=== PATIENT | male | born 1995 | race Caucasian/White ===

== ENCOUNTER 2018-03-22 08:50 | Emergency (ER) | payer SELFPAY ==
[~2018-03-22] VITALS: Ht 172.7 cm; Wt 70.1 kg
[2018-03-22 08:52] VITALS: BP 107/62
--- NOTE | 2018-03-22 09:05 | NUR ---
PATIENT PRESENTS TO ED WITH COMPLAINTS OF HEADACHE BEHIND THE EYES, NAUSEA, AND FEVER. PATIENT STATES ALL THESE SYMPTOMS STARTED YESTERDAY AND HAVE BEEN WORSENING SINCE. MOTHER STATES SHE GAVE HIM 2 TYLENOL LAST NIGHT. PATIENT DENIES ACTIVE VOMITING AND DIARRHEA. AAOX4; LUNGS CLEAR BL; HR EVEN AND REGULAR; PT DENIES ANY FEVER, CP, SOB, OR COUGH AT THIS TIME; PATIENT STATES PAIN OF 9/10 AT THIS TIME; VSS; PATIENT POSITIONED FOR COMFORT; HOB ELEVATED; BEDRAILS UP X1; BED DOWN. ER MD MADE AWARE OF PT STATUS.
[2018-03-22] MEDS ORDERED: NACL 0.9% 1,000 ML IV ONE (09:30)
[2018-03-22] MEDS ORDERED: KETOROLAC 30 MG/ML VIAL IVP ONE (09:30)
[2018-03-22] MEDS ORDERED: KETOROLAC 30 MG/ML VIAL ONE (09:54)
[2018-03-22 10:07] LABS: BASOPHILS % (AUTO) 0.2 % (0.0-2.0); HEMATOCRIT 46.4 % (36-52); LYMPHOCYTES # (AUTO) 0.5 K/uL (2.0-11.5); LYMPHOCYTES % (AUTO) 5.4 % (20.5-51.1); MEAN CORPUSCULAR HEMOGLOBIN 33 pg (27-31); MEAN CORPUSCULAR HGB CONC 35 g/dL (33-37); MEAN CORPUSCULAR VOLUME 94.4 fL (80-94); MONOCYTES # (AUTO) 1.1 K/uL (0.8-1.0); MONOCYTES % (AUTO) 11.5 % (1.7-9.3); NEUTROPHILS # (AUTO) 7.6 K/uL (1.8-7.7); NEUTROPHILS % (AUTO) 82.9 % (42.2-75.2); PLATELET COUNT (AUTO) 162 K/uL (140-450); RED BLOOD CELL COUNT(AUTO) 4.92 MIL/uL (4.20-6.10); RED CELL DISTRIBUTION WIDTH 12.9 % (11.6-13.7); WHITE BLOOD COUNT (AUTO) 9.2 K/uL (4.8-10.8)
[2018-03-22 10:12] LABS: ANION GAP 10.7 (8-16); CARBON DIOXIDE 29.8 mmol/L (21-32); CREATININE 1.1 mg/dL (0.7-1.3); POTASSIUM 3.5 mmol/L (3.5-5.1)
[2018-03-22 10:18] LABS: ALBUMIN 4.1 g/dL (3.4-5.0); TOTAL BILIRUBIN 0.3 mg/dL (0.0-1.0)
[2018-03-22 10:48] VITALS: BP 107/62
== END 2018-03-22 10:49 | disposition home or self-care (01) ==
LOC: MED 08:50
DX: J02.9 Acute pharyngitis, unspecified (principal)
CPT/HCPCS: 36415; 80053; 85025; 87081; 96361; 96374; 99284; J1885; J7030